=== PATIENT | female | born 1970 | race American Indian/Alaskan Native ===

== ENCOUNTER 2017-12-27 10:45 | Emergency (ER) | payer OTHER ==
[2017-12-27 10:55] VITALS: BMI 43.4
[2017-12-27] MEDS ORDERED: DiphenhydrAMINE 50 mg/ml Inj IVP STA (12:20)
[2017-12-27] MEDS ORDERED: Sodium Chloride 0.9% 1,000 ML IV ONE (12:21)
[2017-12-27 12:42] VITALS: O2SAT 98
[2017-12-27 12:47] LABS: BASO # 0.1 K/uL (0.0-0.2); BASO % 0.9 % (0.0-2.0); EOS # 0.1 K/uL (0.0-0.7); EOS % 1.1 % (0.0-4.0); HCG,QUALITATIVE URINE NEGATIVE (NEGATIVE); HEMOGLOBIN 12.9 g/dL (11.0-16.0); LYMPH # 2.3 K/uL (1.0-4.3); LYMPH % 36.9 % (20.0-40.0); MEAN CELL VOLUME 86.9 fL (81.0-99.0); MEAN CORPUSCULAR HEMOGLOBIN 29.2 pg (27.0-31.0); MEAN CORPUSCULAR HGB CONC 33.6 g/dL (33.0-37.0); MEAN PLATELET VOLUME 9.7 fL (7.2-11.7); MONO # 0.4 K/uL (0.0-0.8); MONO % 6.1 % (0.0-10.0); NEUT # 3.4 K/uL (1.8-7.0); RBC 4.41 Mil/uL (3.80-5.20); RED CELL DISTRIBUTION WIDTH 14.5 % (11.5-14.5); WHITE BLOOD COUNT 6.2 K/uL (4.8-10.8)
[2017-12-27 12:56] LABS: ALB/GLOB RATIO 1.3 (1.0-2.1); ALBUMIN 4.4 g/dL (3.5-5.0); BLOOD UREA NITROGEN 14 mg/dL (7-17); CALCIUM 10.4 mg/dl (8.6-10.4); GFR NON-AFRICAN AMERICAN > 60
[2017-12-27 12:57] LABS: ALT/SGPT 25 U/L (9-52); AST/SGOT 22 U/L (14-36); SQUAMOUS EPITHIAL 8 /hpf (0-5); URINE BACTERIA MANY (<OCC); URINE BILIRUBIN NEGATIVE (NEGATIVE); URINE BLOOD 1+ (NEGATIVE); URINE CLARITY Hazy (Clear); URINE COLOR Yellow (YELLOW); URINE GLUCOSE (UA) NORMAL (Normal); URINE LEUKOCYTE ESTERASE NEG Leu/uL (Negative); URINE PROTEIN NEGATIVE (NEGATIVE); URINE UROBILINOGEN NORMAL mg/dL (0.2-1.0)
[2017-12-27] MEDS ORDERED: DiphenhydrAMINE 50 mg/ml Inj ONE (13:32)
--- NOTE | 2017-12-27 13:40 | C.PDOC ---
History Of Present Illness 47-year-old female, PMHx includes Diabetes and Hypertension, presents to the emergency department with complaints of one week Hx of left-sided headache. Pt typically does not get a headache and was concerned because it didn't go away. Patient denies numbness/weakness, nausea/vomiting, neck pain, fever, visual changes or any other associated symptoms. no other complaints at this time. Time Seen by Provider: 12/27/17 11:12 Chief Complaint (Nursing): Headache History Per: Patient History/Exam Limitations: no limitations Current Symptoms Are (Timing): Still Present Severity: Moderate Past Medical History Reviewed: Historical Data, Nursing Documentation, Vital Signs Vital Signs: Last Vital Signs Temp 98.7 F 12/27/17 10:56 Pulse 76 12/27/17 12:14 Resp 17 12/27/17 12:14 BP 166/90 H 12/27/17 12:14 Pulse Ox 98 12/27/17 12:14 - Medical History PMH: HTN, Hypercholesterolemia Surgical History: Cholecystectomy Family History: States: No Known Family Hx - Social History Hx Alcohol Use: No Hx Substance Use: No Review Of Systems Constitutional: Negative for: Fever, Chills Cardiovascular: Negative for: Chest Pain, Palpitations Respiratory: Negative for: Shortness of Breath Gastrointestinal: Negative for: Nausea, Vomiting Neurological: Positive for: Headache. Negative for: Weakness, Numbness Physical Exam - Physical Exam Appears: Non-toxic, No Acute Distress Skin: Normal Color, Warm, Dry, No Rash Head: Atraumatic, Normacephalic Eye(s): bilateral: Normal Inspection, PERRL, EOMI Nose: Normal Oral Mucosa: Moist Lips: Normal Appearing Neck: Normal ROM Cardiovascular: Rhythm Regular, No Murmur Respiratory: Normal Breath Sounds, No Accessory Muscle Use Gastrointestinal/Abdominal: Soft, No Tenderness Back: Normal Inspection Extremity: Normal ROM, No Deformity Neurological/Psych: Oriented x3, Normal Speech, Normal Cognition, Normal Cranial Nerves (II-XII intact), Normal Motor, Normal Sensation, Normal Reflexes, Other (No facial droop, No gaze. Tongue is midline) Gait: Steady ED Course And Treatment - Laboratory Results Result Diagrams: 12/27/17 12:39 12/27/17 12:39 O2 Sat by Pulse Oximetry: 98 Pulse Ox Interpretation: Normal (RA) Against Medical Advice - AMA Patient Left Against Medical Advice: The patient declines admission to the hospital and wishes to leave the Emergency Department. This action is against my medical advice. This decision was made with informed refusal. The patient was told that admission to the hospital is necessary. Explanation of the reasons why were discussed. The risks of leaving were explained to the patient and include, but are not limited to, worsening of known or currently unknown conditions, permanent disability and from undiagnosed or untreated conditions. The patient has the capacity to make this informed decision and understands my explanation of the current medical problem and risks of leaving. The patient voluntarily accepts these risks and signed an AMA form documenting our conversation. The patient was given the opportunity to ask questions and reconsider. The patient was encouraged to return to the Emergency Department at any time for further care. Medical Decision Making Medical Decision Making: Results were discussed with the patient about there being a potential lacunar infarct and the need for observation to have an MRI performed. Patient refuses at this time. AMa form obtained. On re-exam, the patient reports improvement of symptoms. Lungs are CTA, heart is RRR, abdomen is soft, non-tender and the patient is tolerating po well. Ambulatory in the ED with steady gait. Follow up with the medical doctor within 1-2 days. Return if worsened. Disposition - Disposition Referrals: [facility] [Outside] Disposition: AGAINST MEDICAL ADVICE Disposition Time: 14:17 Condition: STABLE Additional Instructions: Follow up with your PMD within 1-2 days without fail. Return if worsened. Prescriptions: Metoclopramide [Reglan] 1 tab PO TID PRN #25 tab PRN Reason: Nausea/Vomiting Instructions: Headache, Adult (DC) Forms: [facility] (Azeri), Work Excuse - Clinical Impression Clinical Impression: Headache, Lacunar infarction - Scribe Statement The provider has reviewed the documentation as recorded by the Scribe (Nydia Chase) All medical record entries made by the Scribe were at my direction and personally dictated by me. I have reviewed the chart and agree that the record accurately reflects my personal performance of the history, physical exam, medical decision making, and the department course for this patient. I have also personally directed, reviewed, and agree with the discharge instructions and disposition.
--- NOTE | 2017-12-27 13:50 | CT ---
Date of service: 12/27/2017 PROCEDURE: CT HEAD WITHOUT CONTRAST. HISTORY: Headache x 1week COMPARISON: No prior study available for comparison. TECHNIQUE: Axial computed tomography images were obtained through the head/brain without intravenous contrast. Radiation dose: Total exam DLP = 1060.19. MGy-cm. This CT exam was performed using one or more of the following dose reduction techniques: Automated exposure control, adjustment of the mA and/or kV according to patient size, and/or use of iterative reconstruction technique. FINDINGS: HEMORRHAGE: No acute parenchymal, subarachnoid or extra-axial hemorrhage. BRAIN: There are low-attenuation foci present both basal ganglia likely representing chronic lacunar type infarcts however follow-up MRI could be performed to confirm and exclude other pathology.. VENTRICLES: No obstructive hydrocephalus. CALVARIUM: There are no acute calvarial fractures. PARANASAL SINUSES: Partial opacification several right-sided ethmoid air cells. MASTOID AIR CELLS: Unremarkable as visualized. No inflammatory changes. OTHER FINDINGS: None. IMPRESSION: No acute intracranial hemorrhage. Low-attenuation foci both basal ganglia likely representing chronic appearing infarcts. Follow-up MRI could be performed to confirm and exclude other pathology
--- NOTE | 2017-12-27 13:56 | C.PDOC ---
Time Seen by Provider: 12/27/17 11:12 Chief Complaint (Nursing): Headache Past Medical History Vital Signs: Last Vital Signs Temp 98.7 F 12/27/17 10:56 Pulse 76 12/27/17 12:14 Resp 17 12/27/17 12:14 BP 166/90 H 12/27/17 12:14 Pulse Ox 98 12/27/17 12:14 - Medical History PMH: HTN, Hypercholesterolemia Surgical History: Cholecystectomy - Social History Hx Alcohol Use: No Hx Substance Use: No ED Course And Treatment - Laboratory Results Result Diagrams: 12/27/17 12:39 12/27/17 12:39 O2 Sat by Pulse Oximetry: 98 Disposition - Disposition
[2017-12-27 14:49] VITALS: BP 141/81; PULSE 84; RESP 18; TEMP 98.6
== END 2017-12-27 15:03 | disposition left against medical advice (07) ==
LOC: C.ER 10:45
DX: R51 Headache (principal); I63.81 Other cerebral infarction due to occlusion or stenosis of small artery
CPT/HCPCS: 70450; 80053; 81001; 84703; 85025; 96361; 96374; 96375; 99285; J1200; J2765; J7030